=== PATIENT | female | born 1970 | race Caucasian/White ===

== ENCOUNTER → 2016-12-02 | Day surgery (SDC) | payer OTHER ==
[~2016-12-02] VITALS: Ht 167.6 cm; Wt 67.6 kg
[~2016-12-02] MED LIST: ACETAMINOPHEN INTRAVENOUS 100 ML IV ONE; BUPIVAC MPF-EPI 0.5%-1:200000 30 ML VIAL. ONE; DESFLURANE > 120 MINUTES IH ONE; DEXAMETHASONE SOD PHOS 20 MG/5 ML VIAL. ONE; FENTANYL PF 100 MCG/2 ML VIAL. IV PRN; FENTANYL PF 100 MCG/2 ML VIAL. ONE; GLYCOPYRROLATE 1 MG/5 ML VIAL. ONE; HYDROMORPHONE 2 MG/ML VIAL. IV PRN; IOHEXOL 300 MG/ML 50 ML VIAL. ONE; IV RINGERS,LACTATED 1000ML 1,000 ML IV SCH; KETOROLAC 60 MG/2 ML SYRINGE FOR OR. ONE; LIDOCAINE 1% 1 ML SYRINGE. ID PRN; LIDOCAINE 2% 100 MG/5 ML DISP.SYRIN. ONE; MIDAZOLAM HCL 2 MG/2 ML VIAL. ONE; MORPHINE SULFATE 10 MG/ML VIAL. ONE; MORPHINE SULFATE 2 MG/ML DISP.SYRIN. IV PRN; NEOSTIGMINE METHYLSULFATE 5 MG/5 ML SYRINGE. ONE; ONDANSETRON PF 4 MG/2 ML VIAL. IV PRN; ONDANSETRON PF 4 MG/2 ML VIAL. ONE; OXYC-323 PO; OXYCODONE/APAP 5/325 TABLET. PO PRN; PROCHLORPERAZINE 10 MG/2 ML VIAL. IV PRN; PROPOFOL 20 ML IV ONE; ROCURONIUM 50 MG/5 ML VIAL. ONE; SEVOFLURANE 31 TO 60 MINUTES. IH ONE; SURGICEL HEMOSTAT 4X8 EACH. ONE
[2016-12-02 09:58] LABS: NEG OBC UR NEG; POS OBC UR POS
--- NOTE | 2016-12-02 12:24 | RAD ---
Intraoperative cholangiogram, 12/02/2016: History: Cholecystectomy 2 spot films from surgery are presented for review. 15.3 seconds of fluoroscopy time was utilized. Contrast has been injected into the cystic duct remnant. There is good flow of contrast into the duodenum at the ampulla. No persistent filling defect is seen to suggest a common duct calculus. The incompletely opacified intrahepatic ducts are unremarkable. No contrast extravasation is seen. IMPRESSION: No significant abnormality is detected.
--- NOTE | 2016-12-02 12:44 | PDOC ---
BRIEF OPERATIVE NOTE Pre-Op Diagnosis cholelithiasis lap meryl, ioc richard green ebl 50 ivf 1400 magnolia well to rr ELIZABETH LUX MD Dec 02, 2016 12:44
[2016-12-02 14:00] VITALS: BP 100/43
--- NOTE | 2016-12-02 20:14 | OP ---
DATE OF SURGERY: 12/02/2016 PREOPERATIVE DIAGNOSIS: Cholelithiasis. POSTOPERATIVE DIAGNOSIS: Cholelithiasis. PROCEDURE: Laparoscopic cholecystectomy with intraoperative cholangiogram. SURGEON: Elizabeth Lux MD ANESTHESIA: General. ESTIMATED BLOOD LOSS: 50 mL. IV FLUIDS: 1400 mL. INDICATIONS: The patient is a very pleasant 46-year-old female, who is having episodes of symptomatic cholelithiasis. She is here today for cholecystectomy. FINDINGS: Intraoperative cholangiogram is normal. DESCRIPTION OF PROCEDURE: After informed consent was obtained, the patient was taken to the operating room and placed in supine position. After adequate induction of general anesthesia, she was prepped and draped in usual sterile fashion. An umbilical skin incision was made with a scalpel, subcutaneous tissues with a hemostat. [facility] was used to grab the fascia and lift it anteriorly. Veress was used to gain access to the peritoneal cavity. Low opening pressures confirmed intraperitoneal placement of Veress. Pneumoperitoneum to 15 mmHg was established followed by placement of 5 mm port. A 5 mm 30-degree lens was inserted, which revealed good port placement. No evidence of entry trauma. She was placed head up, rotated towards the left. Three additional ports were placed under direct vision, 2 were 5 mm right lateral ports and 1 was epigastric 11 mm port. The fundus of the gallbladder was retracted over the liver and slightly towards the right. Infundibulum was retracted towards the right and towards her toes to open the triangle of Calot. At the level of the infundibulum, the leading peritoneal edge was scored medially and laterally and carried back towards the liver. [place] dissector was then used to dissect out the triangle of Calot. At the completion of dissection, 2 structures were seen leading directly to the gallbladder, 1 was a cystic artery and 1 was a cystic duct. The gallbladder had been dissected away from the liver bed and the gallbladder had been dissected away from the cystic plate. In interface between the gallbladder bed and the liver was a large vessel that was left undisturbed at this point. Two clips were placed on cystic artery proximally, one distally, and a clip was placed on cystic duct adjacent to the gallbladder. Ductotomy was made with scissors. Intraoperative cholangiogram showed free flow of contrast through the cystic duct, common bile duct, common hepatic, left and right hepatic, intrahepatic radicles, free flow of contrast into the duodenum. No filling defects were noted. The catheter was removed and 3 clips were placed on the cystic duct distal to the ductotomy. Ductotomy was completed with scissors. Care was taken to make sure the clips encompassed the entire diameter of the duct and that the clips did not encroach upon any undissected tissue. The cystic artery was transected sharply. The large artery that was visible between the gallbladder and the liver bed was avoided and dissection was kept close to the gallbladder. In doing so, it was apparent that there were small arterial branches that were leading off this large vessel and these were controlled with a clip corporate compliance director as they fed into the back wall of the gallbladder, but the large vessel itself was left undisturbed and eventually terminated in the liver parenchyma itself. At this point, the gallbladder had been fully mobilized away from the bed of liver with cautery and placed in laparoscopic bag and brought through the epigastric incision. Right upper quadrant was irrigated. Irrigant returned clear. There was no bleeding or bile leakage noted. Fascial closure device was used to close the fascia at the epigastric incisions, 0 Vicryl suture x 2. The ports were removed under direct vision and were hemostatic. Pneumoperitoneum was desufflated. Skin incisions were closed with 4-0 Monocryl in subcuticular fashion. Sterile dressings were placed. She tolerated the procedure well. There were no apparent complications. She was then transferred in stable condition to recovery room. ELIZABETH LUX MD DR: ANGIE/len JOB#: [id number] / [id number] CHRIS Nuñez MD
--- NOTE | 2016-12-03 13:18 | PATHOLOGY ---
PATHOLOGY REPORT * * * * * * * * FINAL DIAGNOSIS: Gallbladder, laparoscopic cholecystectomy: - Cholelithiasis. - Chronic cholecystitis with eosinophils. COMMENT: There is no evidence of malignancy. (LEIDA:; d/t: 12/03/16) REPORT ELECTRONICALLY SIGNED BY: Aram Avila M.D. DATE/TIME: 12/03/2016 13:18 * * * * * * * * GROSS PATHOLOGY: Received in formalin labeled "Kiera Dwyer, gallbladder and contents," is a 9.2 x 3.7 x 2.4 cm, previously punctured gallbladder with adipose covered serosal surfaces. Opening the gallbladder reveals a velvety, light jo mucosa and an average wall thickness of 0.2 cm. Calculi are present and no masses are noted grossly. Shellfish Weigher sections from the body and fundus are submitted along with the proximal margin in cassette A1. (CAA; 12/02/2016) INITIAL CPT CODE(S): A; 55363 Professional services performed [place] [facility] [place] [address] Technical services performed by [facility] at [address] [place] [address] [address], [place] [address] Bobby Crowley fax: [phone] SPECIMEN(S) RECEIVED: A.Gallbladder and contents CLINICAL HISTORY: Cholelithiasis PATIENT: KIERA DWYER /AGE: 111/17/1970 (Age: 46) PATIENT #: [id number] ALT CASE #: SPECIMEN COLLECTION DATE: 12/02/2016 SPECIMEN RECEIVED DATE: 12/02/2016 [facility] - [address] [place] [address] - PHONE: [phone] * * * END OF REPORT * * *
== END ==
LOC: SURG 09:37
PROVIDERS: ATTEND Surgery
DX: K80.20 Calculus of gallbladder without cholecystitis without obstruction (principal)
CPT/HCPCS: 47563; 74300; 81025; 88304; C1782; J0131; J1100; J1885; J1956; J2250; J2405; J2704; J2710; J3010; J3490; J7030; J7120; Q9967; J2270